=== PATIENT | female | born 2000 | race Native Hawaiian/Other Pacific Islander ===

== ENCOUNTER 2020-04-26 00:18 | Emergency (ER) | payer OTHER, SELFPAY ==
--- NOTE | 2020-04-26 01:12 | PC.NURSE ---
NO LONGER WANTS TO STAY SHE WILL NOT HAVE A RIDE
== END 2020-04-26 00:53 | disposition left against medical advice (07) ==
PROVIDERS: Emergency Provider Emergency Medicine
DX: M25.569 Pain in unspecified knee (principal)
CPT/HCPCS: 99281

== ENCOUNTER 2021-02-02 19:04 | Emergency (ER) | payer OTHER, SELFPAY ==
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
[2021-02-02 19:43] VITALS: BP 140/85; PULSE 84; RESP 20; TEMP 36.6; O2SAT 98; BMI 32.9
[2021-02-02] MEDS: Acetaminophen 325 MG TABLET 650 MG PO (20:35)
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
== END 2021-02-02 22:37 | disposition home or self-care (01) ==
PROVIDERS: Emergency Provider Internal Medicine; PCP Nurse Practitioner Primary Care
DX: S40.211A Abrasion of right shoulder, initial encounter (principal); S60.811A Abrasion of right wrist, initial encounter; S80.212A Abrasion, left knee, initial encounter; S63.501A Unspecified sprain of right wrist, initial encounter; Y35.813A Legal intervention involving manhandling, suspect injured, initial encounter; Y93.89 Activity, other specified; Y92.9 Unspecified place or not applicable; Y99.9 Unspecified external cause status
CPT/HCPCS: 70450; 72125; 73110; 73130; 73564; 90471; 99283; 99284

== ENCOUNTER 2021-06-08 19:47 | Emergency (ER) | payer OTHER, SELFPAY ==
--- NOTE | 2021-06-08 | ECG_ITS ---
Test Reason : GENERAL MEDICAL Blood Pressure : / mmHG Vent. Rate : 078 BPM Atrial Rate : 078 BPM P-R Int : 162 ms QRS Dur : 080 ms QT Int : 388 ms P-R-T Axes : 034 001 014 degrees QTc Int : 442 ms Normal sinus rhythm with sinus arrhythmia RSR' or QR pattern in V1 suggests right ventricular conduction delay Otherwise normal ECG No previous ECGs available Referred By: Generic ED Physician Electronically Signed By:ALVINA LYNCH MD
[2021-06-08 21:36] VITALS: BP 138/88; PULSE 90; RESP 20; TEMP 36.5; O2SAT 100; BMI 46.5
[2021-06-08 23:08] VITALS: BP 128/69; PULSE 74; RESP 14; O2SAT 97
--- NOTE | 2021-06-09 00:27 | ED_ITS ---
HPI - Asthma General Chief Complaint: Asthma Stated Complaint: asthma Time Seen by Provider: 06/09/21 00:24 Source: patient and family Mode of arrival: ambulatory Limitations: no limitations History of Present Illness HPI Narrative: 20-year-old female with history of asthma came in with asthma exacerbation. Patient ran out of her medication, patient has been coughing with clear phlegm, patient smokes sporadically medical marijuana, patient declined any fever, no chills, no shortness of breath. Patient now feels better. Related Data Previous Rx's Medication Instructions Recorded naproxen 500 mg tablet 500 mg PO BID PRN #20 tab 02/02/21 albuterol sulfate 90 mcg/actuation 1 inh INHALATION QID PRN #8.5 g 06/09/21 aerosol inhaler prednisone 20 mg tablet 20 mg PO BID #10 tab 06/09/21 Allergies Allergy/AdvReac Type Severity Reaction Status Date / Time DUST Allergy Unknown RUNNY Uncoded 06/08/21 21:36 NOSE,NASAL CONGESTION Review of Systems Review of Systems: All other systems are reviewed and are negative Constitutional: Reports as per HPI and Reports no additional constitutional complaints Eyes: Reports as per HPI and Reports no additional eye complaints Reports system reviewed and no additional complaints, except as documented Cardiovascular: Reports as per HPI and Reports no additional cardiovascular complaints Respiratory: Reports as per HPI and Reports no additional respiratory complaints Gastrointestinal: Reports as per HPI and Reports no additional gastrointestinal complaints Genitourinary: Reports no additional female genitourinary complaints Musculoskeletal: Reports no additional musculoskeletal complaints Skin/Breast: Reports system reviewed and no additional complaints, except as docu Psychiatric: Reports no additional psychiatric complaints Endocrine: Reports no additional endocrine complaints Hematologic/Lymphatic: Reports no additional hematologic/lymphatic complaints Allergic/Immunologic: Reports no additional allergic/immunologic complaints Reports system reviewed and no additional complaints, except as documented and Reports Abnormal speech present [facility] Past Medical History Medical History Asthma Surgical History History of left knee replacement Social History Social History Patient : No Physical Exam Vital Signs: Vital Signs: Last Vital Signs Temp 97.7 F 06/08/21 21:36 Pulse 74 06/08/21 23:08 Resp 14 06/08/21 23:08 BP 128/69 06/08/21 23:08 Pulse Ox 97 06/08/21 23:08 Body Mass Index 46.5 vital signs have been reviewed as appeared to be correct. Blood pressure normal. Heart rate normal. Respiration rate normal. Temperature normal. Oxygen saturation normal. Appearance: Alert. Oriented X3. No acute distress. Head: Normal external exam. Normocephalic. Atraumatic. No Mcleod signs noted. No raccoon eyes noted Eyes: PERRLA. EOMI. Conjunctiva and sclera normal. Eyelids normal. ENT: TM's Normal. Pharynx normal. Uvula midline. Moist mucous membranes. No trismus noted. No drooling noted. No muffled voice noted. Neck: Normal inspection. Neck supple. FROM. No adenopathy. Thyroid Normal. No meningeal signs. No neck mass noted. CVS: Normal heart rate and rhythm. Heart sound normal. No murmurs noted. Pulses normal throughout. Respiratory: No respiratory distress. Painless inspiration. Breath sounds normal. No wheezes/rales/rhonchi noted. Chest nontender. No accessory muscle usage noted or decreased air movement noted. Abdomen: Soft and nontender. Bowel sounds normal in all 4 quadrants. No distention noted. No organomegaly noted. No visible injury noted. Back: No CVA tenderness. Full range of motion noted. Skin: Skin warm and dry. Normal skin color. Normal skin turgor. No rashes/lesions/lacerations noted. Extremities: No lower extremity edema. Extremities exhibit normal range of motion. Extremities nontender. Neuro: Oriented X 3. Cranial nerve exam: II-XII are grossly intact No motor deficit. No sensory deficit. Reflexes normal. Course Course Course Narrative: Assessment and plan. 20-year-old female history of asthma came in for acute asthma exacerbation patient do not have asthma medication at home, will prescribe albuterol prednisone for the patient. Discharge Plan Discharge Clinical Impression: Asthma with acute exacerbation Patient Disposition: Home, Self-Care Instructions: Asthma (ED) Prescriptions: New albuterol sulfate 90 mcg/actuation HFA aerosol inhaler 1 inh inhalation QID PRN (Reason: shortness of breath or wheezing) Qty: 8.5 RF: 0 prednisone 20 mg tablet 20 mg PO BID Qty: 10 RF: 0 No Action naproxen 500 mg tablet 500 mg PO BID PRN (Reason: pain) Qty: 20 RF: 0 Referrals: Physician,Unknown J [Primary Care Provider] - 2 days Stand Alone Forms: Work/School Release
[2021-06-09] MEDS: predniSONE 20 MG TABLET PO (00:49)
== END 2021-06-09 00:51 | disposition home or self-care (01) ==
LOC: HO.ED 06-09 00:33
PROVIDERS: Emergency Provider Emergency Medicine
DX: J45.901 Unspecified asthma with (acute) exacerbation (principal); R05.9 Cough, unspecified; F12.90 Cannabis use, unspecified, uncomplicated; Z79.899 Other long term (current) drug therapy
CPT/HCPCS: 93005; 99283

== ENCOUNTER 2024-01-17 14:13 | Emergency (ER) | payer OTHER, SELFPAY ==
--- NOTE | 2024-01-17 14:23 | ED.GENADULT ---
HPI - General Adult General Stated complaint: covid test Time Seen by Provider: 01/17/24 14:32 Source: patient and other (friend ) Mode of arrival: ambulatory Limitations: no limitations History of Present Illness ED Provider: CARLY Ludwig HPI narrative: 23 year old female presents requesting covid testing. Brother was + for covid. Work requested they come in for testing. Deneis cough, fevers, chills, cp, sob, nausea, vomiting, fatigue, malaise, myalgias Related Data Previous Rx's ?Medication ?Instructions ?Recorded naproxen 500 mg tablet 500 mg PO BID PRN pain #20 tabs 02/02/21 albuterol sulfate 90 mcg/actuation 1 inh inhalation QID PRN shortness 06/09/21 aerosol inhaler of breath or wheezing #8.5 grams prednisone 20 mg tablet 20 mg PO BID #10 tabs 06/09/21 Allergies Allergy/AdvReac Type Severity Reaction Status Date / Time DUST Allergy Unknown RUNNY Uncoded 06/08/21 21:36 NOSE,NASAL CONGESTION Review of Systems Review of Systems: Yes all other systems are reviewed and are negative PMFSH Past Medical History Attestation statement: The following information was validated with the patient. Source: old records reviewed and nursing notes reviewed Medical History Asthma Surgical History History of left knee replacement Physical Exam ED Vital Signs: vss Appearance: Alert.? Oriented X3.? No acute distress.? Head: Normocephalic, atraumatic, no step-offs or deformities Eyes: Pupils equal, round and reactive to light.? CVS: Normal heart rate and rhythm.? Pulses normal.? Respiratory: No respiratory distress.? Breath sounds normal.? Abdomen: Soft and nontender.? Skin: Skin warm and dry.? Normal skin color.? Normal skin turgor.? Extremities: 5/5 strength to bilateral upper and lower extremities Neuro: Oriented X 3.? No motor deficit.? No sensory deficit. CN 2-12 intact Course Course Course Narrative: This is an RME done by CARLY Ludwig: Additional HPI, ROS, PE not included below will be deferred to primary provider. Medical Decision Making Medical Decision Making MDM Narrative: 23 year old female presents requesting covid test known sick contact covid + PE benign hx and pe - normal will rule out viral illness. Plan dc Differential Diagnosis Differential Diagnoses: The differential diagnosis associated with the presentation includes hx and pe - normal will rule out viral illness. Admission/Observation Consideration of admission/observation: Escalation of care including admission/observation considered [facility] Critical Care Time Critical Care Time Critical Care Time: No Discharge Plan Discharge Clinical Impression: Viral illness Patient Disposition: Home, Self-Care Instructions: Viral Syndrome (ED) Additional Instructions: Take your medications as prescribed. If you were prescribed antibiotics today, it is important that you take your medication to their entirety, do not skip any doses, do not finish them early. Follow-up with your primary care provider this week. Return to the emergency department with new or worsening symptoms. In case of emergency call 911 Prescriptions: No Action naproxen 500 mg tablet 500 mg PO BID PRN (Reason: pain) Qty: 20 0RF albuterol sulfate 90 mcg/actuation HFA aerosol inhaler 1 inh inhalation QID PRN (Reason: shortness of breath or wheezing) Qty: 8.5 0RF prednisone 20 mg tablet 20 mg PO BID Qty: 10 0RF Referrals: Physician,Unknown J [Primary Care Provider] - 1 week Stand Alone Forms: Work/School Release Print Language: Amharic
[2024-01-17 14:39] VITALS: BP 136/55; PULSE 74; RESP 18; TEMP 36.4; O2SAT 96; BMI 36.6
[2024-01-17 14:48] VITALS: BP 136/55; PULSE 74; RESP 18; TEMP 36.4; O2SAT 96
[2024-01-17 14:51] LABS: COVID-19 Test Negative (Negative); IDNOW Serial# 9DD0AD1C
[2024-01-17 14:53] LABS: IDNOW Serial# 58CA691E; Influenza A Negative (Negative); Influenza B2 Negative (Negative)
== END 2024-01-17 14:52 | disposition home or self-care (01) ==
PROVIDERS: Physician Assistant; Emergency Provider Emergency Medicine
DX: B34.9 Viral infection, unspecified (principal); Z11.52 Encounter for screening for COVID-19
CPT/HCPCS: 87502; 87635; 99282; 99283

== ENCOUNTER 2024-08-19 22:13 | Emergency (ER) | payer OTHER, SELFPAY ==
[2024-08-19 22:36] VITALS: BP 115/82; PULSE 110; RESP 20; TEMP 37.1; O2SAT 98; BMI 52.3
[2024-08-20 00:43] VITALS: BP 142/89; PULSE 83; RESP 16; TEMP 36.3; O2SAT 98
--- OUTSIDE RECORDS SUMMARY | 2024-08-20 00:48 | XMS_ITS | Clinical Summary ---
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 Name Role Phone Unavailable Primary Care Provider Unavailabl e Social History Tobacco Use Types Packs/Day Years Used Date Smoking Tobacco: Never Assessed Sex and Gender Information Value Date Recorded Sex Assigned at Not on file Gender Identity Not on file Sexual Orientation Not on file Plan of Treatment Health Maintenance Due Date Last Done Comments HPV Vaccines (1 - 3-dose series) 2013 DTaP,Tdap,and Td Vaccines (1 - Tdap) 2017 Hepatitis B Vaccines (1 of 3 - 19+ 3-dose series) 2017 Cervical Cancer Screening: P ap Smear 10/23/2019 COVID-19 Vaccine ( - 2023-2 5 season) 2024 Influenza Vaccine (#1) 2024 Depression Screening 04/25/2024 HIV Screening 04/25/2024 Hepatitis C Screening 04/25/2024 Social Influencers of Health Screening 04/25/2024 HIB Vaccines Aged Out No longer eligi ble based on patient's age to complete this topic Hepatitis A Vaccines Aged Out No long er eligible based on patient's age to complete this topic IPV Vaccines Aged Out No longer eligi ble based on patient's age to complete this topic MMR Vaccines Aged Out No longer eligi ble based on patient's age to complete this topic Meningococcal ACWY Vaccine Aged Out N o longer eligible based on patient's age to complete this topic Pneumococcal Vaccine: Pediat rics (0 to 5 Years) and At-Risk Patients (6 to 64 Years) Aged Out No longer eligible b ased on patient's age to complete this topic RSV Immunization Patients Un patricia 20 months Aged Out No longer eligible b ased on patient's age to complete this topic Varicella Vaccines Aged Out No longer eligible based on patient's age to complete this topic
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
--- NOTE | 2024-08-20 01:59 | PC.NURSE ---
Dermabond used by provider Plan of care ongoing.
[2024-08-20 02:04] VITALS: BP 132/73; PULSE 75; RESP 16; TEMP 36.4; O2SAT 97
[2024-08-20] MEDS: Bacitracin Oint 0.9 GM PACKET 1 APPL TOPICAL (02:04)
[2024-08-20 02:07] VITALS: BP 132/73; PULSE 75; RESP 16; TEMP 36.4; O2SAT 97
== END 2024-08-20 02:10 | disposition home or self-care (01) ==
PROVIDERS: Emergency Provider Emergency Medicine Emergency Medical Services; PCP Nurse Practitioner
DX: S00.81XA Abrasion of other part of head, initial encounter (principal); W25.XXXA Contact with sharp glass, initial encounter; R51.9 Headache, unspecified; Y93.9 Activity, unspecified; Y92.9 Unspecified place or not applicable; Y99.8 Other external cause status
CPT/HCPCS: 12013; 99283; 99284